=== PATIENT | male | born 1975 | race Caucasian/White ===

== ENCOUNTER 2024-04-05 08:39 | Emergency (ER) | payer MEDICARE ==
[~2024-04-05] VITALS: Ht 185.4 cm; Wt 108.2 kg
[2024-04-05] MEDS ORDERED: CHILDREN'S CLARI5 MG PO (08:52)
[2024-04-05 09:28] LABS: BASO % 0.6 % (0.0-1.0); HEMATOCRIT 42.8 % (42.0-52.0); LYMPH # 1.4 10*3/uL (1.3-4.4); LYMPH % 18.8 % (27.0-41.0); MEAN CELL VOLUME 87.3 fl (80.0-94.0); MEAN CORPUSCULAR HGB CONC 34.3 g/dl (33.0-37.0); MEAN PLATELET VOLUME 9.7 fl (9.6-12.3); MONO # 0.8 10*3/uL (0.1-1.0); MONO % 11.7 % (3.0-9.0); NEUT # 4.9 10*3/uL (2.3-7.9); NEUT % 68.3 % (47.0-73.0); PLATELET COUNT AUTOMATED 151 10*3/uL (130-400); RED CELL DISTRI WIDTH 12.5 % (0-14.5); WHITE BLOOD COUNT 7.2 10*3/uL (4.8-10.8)
[2024-04-05 09:50] LABS: BUN 17 mg/dl (9-23); CHLORIDE 107 mmol/L (98-107); POTASSIUM 3.9 mmol/L (3.4-5.1)
[2024-04-05] MEDS ORDERED: AVPAK AZITHROM250 MG PO (10:41)
== END 2024-04-05 10:47 | disposition home or self-care (01) ==
LOC: ED 08:39
PROVIDERS: Internal Medicine
DX: J40 Bronchitis, not specified as acute or chronic (principal); F17.290 Nicotine dependence, other tobacco product, uncomplicated